=== PATIENT | female | born 2000 | race Caucasian/White ===

== ENCOUNTER 2025-07-26 12:57 | Emergency (ER) | payer OTHER, SELFPAY ==
[2025-07-26] MEDS ORDERED: PRENTAB9 PO (13:14)
== END 2025-07-26 13:38 | disposition admitted as inpatient to this hospital (09) ==
LOC: M ED 12:57
DX: Z53.21 Procedure and treatment not carried out due to patient leaving prior to being seen by health care provider (principal)

== ENCOUNTER 2025-07-26 13:05 | Outpatient (CLI) | payer OTHER ==
[~2025-07-26] VITALS: Ht 152.4 cm; Wt 63.1 kg
[2025-07-26] MEDS ORDERED: PRENTAB9 PO (13:14)
[2025-07-26] MEDS ORDERED: HOME MED LIST COMPLETE! XX SCH (13:20)
[2025-07-26 13:28] VITALS: BP 98/57; O2SAT 97
== END 2025-07-26 15:47 | disposition home or self-care (01) ==
LOC: M LDO 13:05
PROVIDERS: ATTEND Obstetrics & Gynecology
DX: O36.8120 Decreased fetal movements, second trimester, not applicable or unspecified (principal); Z3A.25 25 weeks gestation of pregnancy
CPT/HCPCS: 59025; 76815; G0463

== ENCOUNTER 2025-08-20 08:46 | Emergency (ER) | payer OTHER ==
[~2025-08-20 08:46] MED LIST: PRENTAB9 PO
== END 2025-08-20 08:55 | disposition admitted as inpatient to this hospital (09) ==
LOC: M ED 08:46
DX: Z53.21 Procedure and treatment not carried out due to patient leaving prior to being seen by health care provider (principal)

== ENCOUNTER 2025-08-20 08:57 | Outpatient (CLI) | payer OTHER ==
[~2025-08-20] VITALS: Ht 149.9 cm; Wt 65.3 kg
[2025-08-20 09:14] VITALS: BP 102/63
[2025-08-20] MEDS ORDERED: HOME MED LIST COMPLETE! XX SCH (09:35)
[2025-08-20 10:00] VITALS: BP 99/66
[2025-08-20 10:23] LABS: BASO # 0.1 10^3/uL (0.0-0.2); BASO % 0.3 % (0.0-1.0); EOS # 0.1 10^3/uL (0.0-0.5); EOS % 0.7 % (0.0-3.0); LYMPH # 1.8 10^3/uL (1.5-5.0); LYMPH % 12.1 % (24.0-44.0); MONO # 0.8 10^3/uL (0.0-0.8); MONO % 5.6 % (2.0-8.0); NEUTROPHILS # 11.5 10^3/uL (1.5-8.5); NEUTROPHILS % 79.0 % (36.0-66.0); PLATELET COUNT, AUTOMATED 251 10^3/uL (150-450)
[2025-08-20 11:49] VITALS: BP 100/58
== END 2025-08-20 12:32 | disposition home or self-care (01) ==
LOC: M LDO 08:57
PROVIDERS: ATTEND Advanced Practice Midwife
DX: O26.893 Other specified pregnancy related conditions, third trimester (principal); W00.0XXA Fall on same level due to ice and snow, initial encounter; Z3A.28 28 weeks gestation of pregnancy; O36.8130 Decreased fetal movements, third trimester, not applicable or unspecified
CPT/HCPCS: 36415; 59025; 85025; 85460; G0463